=== PATIENT | male | born 1965 | race Caucasian/White ===

== ENCOUNTER 2016-07-10 14:12 | Emergency (ER) | payer OTHER ==
[2016-07-10] MEDS ORDERED: IBUPROFEN 600 MG TABLET ONE (14:43)
[2016-07-10] MEDS ORDERED: ACETAMINOPHEN 325 MG TABLET ONE (14:43)
--- NOTE | 2016-07-10 15:09 | RAD ---
RIGHT HAND 3 VIEWS. HISTORY: Lumbar dropped on ulnar side of the wrist. COMPARISONS: None. TECHNIQUE: Frontal, lateral, and oblique views of the left hand. ALIGNMENT: Grossly unremarkable. FRACTURE: No displaced acute fracture. Minor regular calcification adjacent to pisiform appears dystrophic in nature. SOFT TISSUES: Ulnar soft tissue swelling. RADIOOPAQUE FOREIGN BODY: None. IMPRESSION: No gross malalignment or displaced acute fracture noted.
--- NOTE | 2016-07-10 15:12 | RAD ---
RIGHT WRIST 3 VIEWS HISTORY: Status post right wrist injury. COMPARISONS: None. TECHNIQUE: Frontal, lateral, and oblique views of the right wrist. ALIGNMENT: Grossly unremarkable. FRACTURE: Minimal ulnar styloid process fracture fragment. SOFT TISSUES: Soft tissue swelling at ulnar aspects of the wrist. RADIOOPAQUE FOREIGN BODY: None. IMPRESSION: Minimal ulnar styloid process fracture. Associated soft tissue swelling at ulnar aspects of the wrist.
== END 2016-07-10 15:37 | disposition home or self-care (01) ==
LOC: ED 14:12
DX: S52.614A Nondisplaced fracture of right ulna styloid process, initial encounter for closed fracture (principal); W20.8XXA Other cause of strike by thrown, projected or falling object, initial encounter; Y93.9 Activity, unspecified; Y92.9 Unspecified place or not applicable